=== PATIENT | female | born 1965 | race Caucasian/White ===

== ENCOUNTER 2017-09-06 13:28 | Observation (INO) | payer OTHER ==
[~2017-09-06 13:28] MED LIST: KETOROLAC 30 MG/1 ML SDV IVP ONE; fentaNYL 100 MCG/2 ML INJ IVP PRN
[2017-09-06] MEDS ORDERED: GLUCAGON HCL 1 MG VIAL ONE (13:30)
[2017-09-06] MEDS ORDERED: BUPIVACAINE 0.5% 30 ML SDV ONE (13:30)
[2017-09-06 14:18] VITALS: PULSE 108
[2017-09-06] MEDS ORDERED: LIDOCAINE 1% 2 ML INJ ID PRN (14:18)
[2017-09-06] MEDS ORDERED: LR 1,000 ML IV ONE (14:18)
[2017-09-06] MEDS ORDERED: METOCLOPRAMIDE 10 MG/2 ML VIAL IVP ONE (15:05)
[2017-09-06] MEDS ORDERED: KETOROLAC 30 MG/1 ML SDV ONE (15:08)
--- NOTE | 2017-09-06 15:16 | PDANEPAE ---
ANE History of Present Illness NV X 4 days ANE Past Medical History - Cardiovascular History Hx Hypertension: No Hx Arrhythmias: No Hx Chest Pain: No Hx Coronary Artery / Peripheral Vascular Disease: No Hx CHF / Valvular Disease: No Hx Palpitations: No - Pulmonary History Hx COPD: No Hx Asthma/Reactive Airway Disease: No Hx Recent Upper Respiratory Infection: No Hx Oxygen in Use at Home: No Hx Sleep Apnea: No Sleep Apnea Screening Result - Last Documented: Positive - Neurologic History Hx Cerebrovascular Accident: No Hx Seizures: No Hx Dementia: No - Endocrine History Hx Diabetes: No - Renal History Hx Renal Disorders: No - Liver History Hx Hepatic Disorders: No - Neurological & Psychiatric Hx Hx Neurological and Psychiatric Disorders: No - Cancer History Hx Cancer: No - Congenital Disorder History Hx Congenital Disorders: No - GI History Hx Gastrointestinal Disorders: Yes Gastrointestinal History Comment: gall bladder with diarrhea - Chronic Pain History Chronic Pain: No - Surgical History Prior Surgeries: 04/01 plantar fascitis surg, right RCR 2013, TVH 2005, hemorroids 2008, plantar fascitis 2006, ANE Review of Systems Review of systems is: negative Review of Systems: - Exercise capacity Exercise capacity: >=4 METS METS (RN): 4 METS ANE Patient History - Allergies Allergies/Adverse Reactions: APPLES Allergy (Uncoded 01/28/11 22:10) - Home Medications Home Medications: Lunesta 01/28/11 [Last Taken 09/03/17] Topamax 01/28/11 [Last Taken 09/06/17 06:30] Nortriptyline HCl 09/06/17 [Last Taken 09/05/17 21:00] Reglan 09/06/17 [Last Taken 09/05/17 23:30] - NPO status NPO Status: no food or drink >8 hours NPO Since - Liquids (Date): 09/05/17 NPO Since - Liquids (Time): 20:00 NPO Since - Solids (Date): 09/05/17 NPO Since - Solids (Time): 20:00 - Anes Hx Anes Hx: no prior problems - Smoking Hx Smoking Status: Never smoked - Alcohol Use Alcohol Use: Rarely - Family Anes Hx Family Anes Hx: none Family Hx Anesthesia Complications: adopted, unknown hx ANE Labs/Vital Signs - Vital Signs Blood Pressure: 143/94 Heart Rate: 108 Respiratory Rate: 20 O2 Sat (%): 95 Height: 157.48 cm Weight: 77.111 kg ANE Physical Exam - Airway Neck exam: FROM Mallampati Score: Class 2 Mouth exam: normal dental/mouth exam, small mouth opening - Pulmonary Pulmonary: no respiratory distress - Cardiovascular Cardiovascular: regular rate and rhythym - ASA Status ASA Status: II ANE Anesthesia Plan Anesthesia Plan: general endotracheal anesthesia
[2017-09-06] MEDS ORDERED: MIDAZOLAM 2 MG/2 ML VIAL IVP ONE (15:17)
[2017-09-06] MEDS ORDERED: IOPAMIDOL (ISOVUE-M 300) 15 ML VIAL ONE (15:20)
[2017-09-06] MEDS ORDERED: DEXAMETHASONE 4 MG/ML VIAL ONE (15:33)
[2017-09-06] MEDS ORDERED: fentaNYL 100 MCG/2 ML INJ ONE ×4 (15:33→17:20)
[2017-09-06] MEDS ORDERED: ROCURONIUM 50 MG/5 ML VIAL ONE (15:33)
[2017-09-06] MEDS ORDERED: LIDOCAINE 2% 5 ML SDV ONE (15:33)
[2017-09-06] MEDS ORDERED: ONDANSETRON 4 MG/2 ML VIAL ONE (15:33)
[2017-09-06] MEDS ORDERED: PROPOFOL 200 MG/20 ML VIAL ONE (15:34)
[2017-09-06] MEDS ORDERED: IOPAMIDOL (ISOVUE-300) 150 ML BTL ONE (16:29)
[2017-09-06] MEDS ORDERED: IOPAMIDOL (ISOVUE-M 200) 20 ML VIAL ONE (16:30)
[2017-09-06] MEDS ORDERED: SUGAMMADEX SODIUM 200 MG/2 ML VIAL IVP ONE (16:43)
--- NOTE | 2017-09-06 17:06 | POSTOPPROG ---
Post Op Note Date of Operation: 09/06/17 Surgeon: Charlie Solorzano Anesthesiologist: Sriram Anesthesia: GET(General Endotracheal) Pre-op Diagnosis: Acute Cholecystitis Procedure: Lap Choly with IOC Findings: dilated ducts, no filling defects Inf/Abcess present in the surg proc area at time of surgery?: Yes Depth: Organ Space EBL: Minimal Complications: no immediate Specimen(s): gallbladder
[2017-09-06] MEDS ORDERED: HYDROmorphONE/DILAUDID 1 MG/ML INJ IVP PRN ×2 (17:09)
[2017-09-06] MEDS ORDERED: ONDANSETRON 4 MG/2 ML VIAL IVP PRN ×2 (17:09)
[2017-09-06] MEDS ORDERED: PROMETHAZINE HCL 25 MG/ML INJ IVP PRN (17:09)
[2017-09-06] MEDS ORDERED: ALBUTEROL 3 ML DEYVIAL IH PRN (17:09)
[2017-09-06] MEDS ORDERED: HYDROCODONE/APAP 5/325 TAB PO PRN (17:09)
[2017-09-06] MEDS ORDERED: OXYCODONE/APAP 5/325 TAB PO PRN (17:09)
[2017-09-06] MEDS ORDERED: METOCLOPRAMIDE 10 MG/2 ML VIAL IVP PRN ×2 (17:09)
[2017-09-06] MEDS ORDERED: NALOXONE HCL 0.4 MG/ML INJ IVP PRN ×2 (17:09)
--- NOTE | 2017-09-06 17:09 | POSTANESTH ---
Post Anesthetic Evaluation Cardiovascular Status: Normal, Stable Respiratory Status: Normal, Stable Level of Consciousness/Mental Status: Can Participate in Eval Pain Control: Adequate, Prn Tx Ordered Nausea/Vomiting Control: Adequate, Prn Tx Ordered Complications Possibly Related to Anesthesia: None Noted
[2017-09-06] MEDS: fentaNYL 100 MCG/2 ML INJ IVP PRN ×2 (17:21→17:29)
[2017-09-06] MEDS ORDERED: LR 1,000 ML IV SCH (17:30)
[2017-09-06] MEDS ORDERED: HYDROCODONE/APAP 5/325 TAB ONE (17:32)
[2017-09-06 17:35] VITALS: O2SAT 93
[2017-09-06 17:55] VITALS: TEMP 97.9
[2017-09-06] MEDS ORDERED: KETOROLAC 30 MG/1 ML SDV IVP SCH (18:00)
--- NOTE | 2017-09-06 18:02 | GOP ---
[f rep st] OPERATIVE REPORT DATE OF OPERATION: 09/06/2017 SURGEON: Charlie Solorzano MD ANESTHESIA: General. ANESTHESIOLOGIST: Travis Bhatia MD PREOPERATIVE DIAGNOSIS: Acute cholecystitis. POSTOPERATIVE DIAGNOSIS: Acute cholecystitis. PROCEDURE PERFORMED: Laparoscopic cholecystectomy with intraoperative cholangiography. FINDINGS: Edematous gallbladder, dilated bile ducts without filling defect. INDICATIONS: 52-year-old female with acute cholecystitis. She is undergoing a laparoscopic cholecystectomy at this time. Risks and benefits of procedure, including bleeding, infection, open conversion, bile duct injury, retained stone , and potential for postoperative ERCP. All questions are answered. She desires to proceed. DESCRIPTION OF PROCEDURE: General anesthesia was induced. The abdomen was pre- injected with 0.5% Marcaine with epinephrine. A curvilinear infraumbilical incision was reopened. The midline fascia was opened vertically. A 10 mm trocar was placed under direct visualization. Three additional 5 mm upper abdominal ports were inserted. The gallbladder was retracted cephalad. This was an acutely thickened structure with adherent omentum and superficial hemorrhage. Both duct and artery were circumferentially encompassed confirming the critical view of safety. The duct was occluded and opened. There were multiple calculi noted within the cystic duct. These were all milked in retrograde fashion. There was egress of clear madden bile subsequently. Intraoperative cholangiography showed smooth ampullary tapering with rapid duodenal emptying. There were mildly dilated intra- and extrahepatic bile ducts. No obvious filling defects were identified. No obstructive masses or neoplasm was suggested distally. The clamp was removed. The duct was multiply clipped and divided with the ultrasonic dissector, as was the artery. The gallbladder was peeled from the liver bed fossa and brought out the umbilical port site intact using an EndoCatch pouch. Satisfactory hemostasis was assured. Trocars were removed under direct visualization. The infraumbilical midline fascia was closed with a running Vicryl suture. The wounds were closed with Monocryl suture and Dermabond. The patient was taken to Recovery uneventfully. /[id number]/MODL MTDD
[2017-09-06 18:15] VITALS: BP 133/91; RESP 18
== END 2017-09-06 19:14 | disposition home or self-care (01) ==
LOC: F3N 13:28
PROVIDERS: ADMIT Surgery; ATTEND Surgery
PROC: 0FT44ZZ Resection of Gallbladder, Percutaneous Endoscopic Approach (ICD-10-PCS; principal; 2017-09-06 15:00)
PROC: 0FC88ZZ Extirpation of Matter from Cystic Duct, Via Natural or Artificial Opening Endoscopic (ICD-10-PCS; principal; 2017-09-06 15:00)
PROC: BF10YZZ Fluoroscopy of Bile Ducts using Other Contrast (ICD-10-PCS; 2017-09-06 15:00)
DX: K81.0 Acute cholecystitis (principal)
CPT/HCPCS: J0171; J1100; J1610; J1885; J2250; J2405; J2704; J3010; Q9966; Q9967

== ENCOUNTER 2018-04-19 05:48 | Day surgery (SDC) | payer OTHER ==
[2018-04-19] MEDS ORDERED: LR 1,000 ML IV ONE (06:05)
[2018-04-19] MEDS ORDERED: LIDOCAINE 1% 2 ML INJ ID ONE (06:40)
[2018-04-19] MEDS ORDERED: BUPIVACAINE 0.25% 30 ML SDV ONE (06:51)
[2018-04-19] MEDS ORDERED: LIDOCAINE 2% 100 MG/5 ML SYR ONE (06:51)
[2018-04-19] MEDS ORDERED: DEXAMETHASONE 4 MG/ML VIAL ONE (06:52)
[2018-04-19] MEDS ORDERED: BACITRACIN 50,000 UNITS/10 ML SYR IRR ONE (06:52)
[2018-04-19] MEDS ORDERED: EPINEPHrine 1 MG/ML INJ ONE (06:52)
[2018-04-19] MEDS ORDERED: MIDAZOLAM 2 MG/2 ML VIAL IVP ONE (07:03)
--- NOTE | 2018-04-19 07:03 | PDANEPAE ---
ANE History of Present Illness left foot ramey's neuroma ANE Past Medical History - Cardiovascular History Hx Hypertension: No Hx Arrhythmias: No Hx Chest Pain: No Hx Coronary Artery / Peripheral Vascular Disease: No Hx CHF / Valvular Disease: No Hx Palpitations: No - Pulmonary History Hx COPD: No Hx Asthma/Reactive Airway Disease: No Hx Recent Upper Respiratory Infection: No Hx Oxygen in Use at Home: No Hx Sleep Apnea: Yes Sleep Apnea Screening Result - Last Documented: Negative Pulmonary History Comment: pt states no sleep apnea/no cpap - Neurologic History Hx Cerebrovascular Accident: No Hx Seizures: No Hx Dementia: No - Endocrine History Hx Diabetes: No Obesity: yes - Renal History Hx Renal Disorders: No - Liver History Hx Hepatic Disorders: No - Neurological & Psychiatric Hx Hx Neurological and Psychiatric Disorders: No - Cancer History Hx Cancer: No - Congenital Disorder History Hx Congenital Disorders: No - GI History Hx Gastrointestinal Disorders: Yes Gastrointestinal History Comment: gall bladder with diarrhea - Other Health History Other Health History: NEG - Chronic Pain History Chronic Pain: No - Surgical History Prior Surgeries: CHOLECYSTECTOMY. 04/01 plantar fascitis surg, right RCR 2014, TVH 2005, hemorroids 2008, plantar fascitis 2007, ANE Review of Systems Review of systems is: negative Review of Systems: - Exercise capacity METS (RN): 4 METS ANE Patient History - Allergies Allergies/Adverse Reactions: bee venom protein (honey bee) Allergy (Severe, Verified 09/06/17 15:27) Swelling/neck,face,throat APPLES Allergy (Severe, Uncoded 09/06/17 15:27) Swelling/neck,face,throat - Home Medications Home medications: home medication list seen and reviewed Home Medications: Lunesta 01/28/11 [Last Taken 1 Day Ago ~04/18/18] Topamax 01/28/11 [Last Taken 1 Day Ago ~04/18/18] Nortriptyline HCl 09/06/17 [Last Taken 1 Day Ago ~04/18/18] Multivitamin (*) 04/12/18 [Last Taken 1 Week Ago ~04/12/18] - NPO status NPO Since - Liquids (Date): 04/18/18 NPO Since - Liquids (Time): 21:00 NPO Since - Solids (Date): 04/19/18 NPO Since - Solids (Time): 06:00 - Anes Hx Anes Hx: no prior problems - Smoking Hx Smoking Status: Never smoked - Family Anes Hx Family Hx Anesthesia Complications: adopted, unknown hx ANE Labs/Vital Signs - Vital Signs Blood Pressure: 96/67 Heart Rate: 86 Respiratory Rate: 16 O2 Sat (%): 96 Height: 157.48 cm Weight: 81.647 kg ANE Physical Exam - Airway Neck exam: FROM Mallampati Score: Class 2 Mouth exam: small mouth opening - Pulmonary Pulmonary: no respiratory distress - Cardiovascular Cardiovascular: regular rate and rhythym - ASA Status ASA Status: II ANE Anesthesia Plan Anesthesia Plan: GA with mask
[2018-04-19] MEDS ORDERED: fentaNYL 100 MCG/2 ML INJ ONE ×2 (07:08→09:12)
[2018-04-19] MEDS ORDERED: LIDOCAINE 2% 5 ML SDV ONE (07:08)
[2018-04-19] MEDS ORDERED: PROPOFOL/EMULSION 500 MG/50 ML BOTTLE IV ONE (07:08)
[2018-04-19] MEDS ORDERED: ceFAZolin 2 GM/DEXTROSE 100 ML IV ONE (07:13)
--- NOTE | 2018-04-19 07:13 | PDHPUP ---
History & Physical Update H&P update statement: This history and physical update is based on an assessment of the patient which was completed after admission or registration (within 24 hours), but prior to the surgery/procedure. H&P update: H&P reviewed & patient examined H&P changes: none
[2018-04-19] MEDS ORDERED: MIDAZOLAM 2 MG/2 ML VIAL ONE (07:16)
[2018-04-19] MEDS ORDERED: CEFAZOLIN 2 GM/DEXTROSE/100 ML BAG IV ONE (07:16)
[2018-04-19] MEDS ORDERED: ONDANSETRON 4 MG/2 ML VIAL ONE (07:46)
--- NOTE | 2018-04-19 08:02 | POSTANESTH ---
Post Anesthetic Evaluation Cardiovascular Status: Normal, Stable Respiratory Status: Normal, Stable Level of Consciousness/Mental Status: Can Participate in Eval, Alert and Oriented Pain Control: Adequate, Prn Tx Ordered Nausea/Vomiting Control: Adequate, Prn Tx Ordered Complications Possibly Related to Anesthesia: None Noted
[2018-04-19] MEDS ORDERED: PROPOFOL 200 MG/20 ML VIAL ONE (08:17)
--- NOTE | 2018-04-19 09:04 | POSTOPPROG ---
Post Op Note Date of Operation: 04/19/18 Surgeon: Georges Lisa Vocational Teacher: none Anesthesiologist: liang Anesthesia: IV Sedation Pre-op Diagnosis: plantar plate tear and neuroma left 2nd Post-op Diagnosis: same Indication: plantar plate tear Procedure: neurectomy and plantar plate repair left 2nd Findings: torn plantar plate and neuroma Inf/Abcess present in the surg proc area at time of surgery?: No Depth: Deep Incisional (Fascial) EBL: Minimal Total fluids administered: 20cc 9/1 ratio .25% marcaine plain and with epi Complications: none Drains: Other (none)
[2018-04-19] MEDS ORDERED: fentaNYL 100 MCG/2 ML INJ IVP PRN (09:09)
[2018-04-19] MEDS ORDERED: HYDROmorphONE/DILAUDID 1 MG/ML INJ IVP PRN (09:09)
[2018-04-19] MEDS ORDERED: oxyCODONE IR 5 MG TAB PO PRN (09:09)
[2018-04-19] MEDS ORDERED: ONDANSETRON 4 MG/2 ML VIAL IVP PRN (09:09)
[2018-04-19] MEDS ORDERED: LR 500 ML IV PRN (09:09)
[2018-04-19] MEDS ORDERED: ALBUTEROL 3 ML DEYVIAL IH PRN (09:09)
[2018-04-19] MEDS ORDERED: ACETAMINOPHEN 500 MG TAB PO PRN (09:09)
[2018-04-19] MEDS ORDERED: NALOXONE HCL 0.4 MG/ML INJ IVP PRN (09:09)
[2018-04-19 10:36] VITALS: BP 134/81
--- NOTE | 2018-04-19 18:21 | GOP ---
[f rep st] OPERATIVE REPORT DATE OF OPERATION: 04/19/2018 SURGEON: Georges Lisa DPM TRAINING AND DEVELOPMENT COORDINATOR: None. ANESTHESIA: Local with MAC. ANESTHESIOLOGIST: Wayne Singh MD PREOPERATIVE DIAGNOSIS: 1. Plantar plate tear, left 2nd metatarsophalangeal joint. 2. Metatarsalgia, left 2nd metatarsal. 3. Neuroma, left 2nd intermetatarsal space. POSTOPERATIVE DIAGNOSIS: 1. Plantar plate tear, left 2nd metatarsophalangeal joint. 2. Metatarsalgia, left 2nd metatarsal. 3. Neuroma, left 2nd intermetatarsal space. PROCEDURE PERFORMED: 1. Second metatarsal osteotomy, left. 2. Plantar plate repair, left 2nd metatarsophalangeal joint. 3. Neuroma excision, left 2nd intermetatarsal space. FINDINGS: SPECIMENS: Soft tissue specimen sent for microscopic examination. ESTIMATED BLOOD LOSS: Minimal. DESCRIPTION OF PROCEDURE: Patient presented to [facility] and was cleared for the inte nded procedure. Patient was taken to the operating room and placed on the table in supine position. IV sedation was started per the anesthesia department. Foot was anesthetized in an infiltrative ner ve block fashion. Foot was prepped, scrubbed and draped in usual sterile fashion. Following exsangu ination by elevation and Esmarch bandage, pneumatic ankle tourniquet was inflated to 225 mmHg. At th is time, attention was directed to the dorsal aspect of the left 2nd metatarsophalangeal joint where a lazy-S incision was made starting over the 2nd intermetatarsal space curving medially and then endi ng distally at the level of the proximal interphalangeal joint. The incision was carried deep utiliz ing sharp blunt dissection, making sure that all neurovascular structures were identified and retract ed at this time. All superficial bleeders were cauterized. The incision was carried down deep to th e level of the joint capsule. At this time, attention was redirected into the 1st intermetatarsal sp marshal where again utilizing sharp blunt dissection was carried down to the deep transverse ligament. T his was sharply incised to allow for adequate visualization to the intermetatarsal nerve. At this ti me, there was noted to be some enlargement of the nerve. It was decided that though not a large spec imen still could potentially be part of her underlying pathology, it was decided would be removed. T he nerve was dissected free distally into the 2 terminal branches and proximally back past the metata rsal head. Before all 3 areas were resected and then removed, specimen was sent in for pathological evaluation. The area was then flushed with copious amounts of sterile saline. Upon completion of th is, attention was redirected to the dorsal aspect of the left 2nd metatarsophalangeal joint. A linea r capsulotomy was performed. Capsular tissues were dissected free medially and laterally to allow fo r adequate exposure to the metatarsophalangeal joint. No obvious degenerative arthritic changes were appreciable though there was obvious tearing of the plantar plate. It was decided that the repair w ould be necessary. At this time, an osteotomy of the metatarsal was performed running from dorsal di stal to plantar proximal. The metatarsal head was pushed proximally and held temporarily with K-wire fixation. Another K-wire was placed into the base of the proximal phalanx before the pin distractor was placed over the site. The area was distracted to allow for better visualization of the plantar plate. Upon completion of this, the base of the proximal phalanx was roughed up with a bone rasp reese n to healthy bleeding bone. The mini scorpion was then utilized to tag the medial and lateral aspect of the plantar plate, 2 drill holes in an X fashion were placed through the base of the proximal pha lanx. The suture was then passed to the dorsal aspect. Upon completion of this, the area was again flushed with copious amounts of sterile saline. K-wire fixation was all removed. C-arm fluoroscopy was utilized to ensure adequate placement of the 2nd metatarsal head resulting in some shortening fro m preoperative evaluation. This was again held temporarily with a K-wire fixation before being fixat ed with the Arthrex 2.0 snap-off screws and then 11 and 13 mm screw were introduced. Temporary K-wir e was removed and good compression at the osteotomy was noted. Overlying cortical shelf of bone on t he dorsal aspect was then removed with a mini rongeur. The areas again flushed with copious amounts of sterile saline. The toe was held in a rectus alignment before having the plantar plate sutured do wn on the dorsal aspect of the proximal phalanx. The area was flushed a final time with copious amou nts of sterile saline before the deep tissues were closed with 3-0 Vicryl followed by subcutaneous cl osure with 5-0 Vicryl and skin closure with 5-0 nylon. The area was dressed with Betadine-soaked Ada ptics, 4x4s, Falguni, and Coban. The patient was taken to recovery room with vital signs stable, vascu lar supply intact to digits 1 through 5 bilaterally after the pneumatic ankle tourniquet had been rel eased for a total tourniquet time of 64 minutes. HEMOSTASIS: PAT at 225 mmHg by 64 minutes. MATERIALS: Arthrex 2.0 snap-off screws by 11 and 13 mm. INJECTABLES: 20 cc 9:1 ratio 0.25% Marcaine plain, 0.25% Marcaine with epi preoperatively. COMPLICATIONS: None. /[id number]/MODL
== END 2018-04-19 10:42 | disposition home or self-care (01) ==
LOC: FSGY 05:48
PROVIDERS: ATTEND Podiatrist Primary Podiatric Medicine
PROC: 0JBR3ZX Excision of Left Foot Subcutaneous Tissue and Fascia, Percutaneous Approach, Diagnostic (ICD-10-PCS; principal; 2018-04-19 07:15)
PROC: 0QQ Lower Bones, Repair (ICD-10-PCS; principal; 2018-04-19 07:15)
DX: S93.145D Subluxation of metatarsophalangeal joint of left lesser toe(s), subsequent encounter (principal); G57.62 Lesion of plantar nerve, left lower limb
CPT/HCPCS: C1713; J0171; J0690; J1100; J2001; J2250; J2405; J2704; J3010

== ENCOUNTER 2018-09-27 07:50 | Day surgery (SDC) | payer OTHER ==
[2018-09-27] MEDS ORDERED: ceFAZolin 2 GM/DEXTROSE 100 ML IV ONE (07:58)
[2018-09-27] MEDS ORDERED: LIDOCAINE 1% 2 ML INJ ID PRN (07:59)
[2018-09-27] MEDS ORDERED: LR 1,000 ML IV ONE (07:59)
[2018-09-27] MEDS ORDERED: BACITRACIN 50,000 UNITS/10 ML SYR IRR ONE (08:49)
[2018-09-27] MEDS ORDERED: BUPIVACAINE/EPI 0.25% 30 ML SDV ONE ×2 (08:49→09:47)
[2018-09-27] MEDS ORDERED: BUPIVACAINE 0.25% 10 ML SDV ONE (08:49)
--- NOTE | 2018-09-27 09:30 | PDHPUP ---
History & Physical Update H&P update statement: This history and physical update is based on an assessment of the patient which was completed after admission or registration (within 24 hours), but prior to the surgery/procedure. H&P update: no change in patient's condition since H&P completed
[2018-09-27] MEDS ORDERED: DEXAMETHASONE 4 MG/ML VIAL IVP PRN ×2 (09:44→11:04)
[2018-09-27] MEDS ORDERED: oxyCODONE IR 5 MG TAB PO PRN ×2 (09:44→11:04)
[2018-09-27] MEDS ORDERED: NS 500 ML IV PRN ×2 (09:44→11:04)
[2018-09-27] MEDS ORDERED: LR 500 ML IV PRN ×2 (09:44→11:04)
[2018-09-27] MEDS ORDERED: NALOXONE HCL 0.4 MG/ML INJ IVP PRN ×2 (09:44→11:04)
[2018-09-27] MEDS ORDERED: MIDAZOLAM 2 MG/2 ML VIAL IVP ONE (09:44)
[2018-09-27] MEDS ORDERED: HYDROCODONE/APAP 5/325 TAB PO PRN ×2 (09:44→11:04)
[2018-09-27] MEDS ORDERED: ALBUTEROL 3 ML DEYVIAL IH PRN ×2 (09:44→11:04)
[2018-09-27] MEDS ORDERED: HYDROmorphONE/DILAUDID 2 MG/ML INJ IVP PRN ×2 (09:44→11:04)
[2018-09-27] MEDS ORDERED: ONDANSETRON 4 MG/2 ML VIAL IVP PRN ×2 (09:44→11:04)
[2018-09-27] MEDS ORDERED: fentaNYL 100 MCG/2 ML INJ IVP PRN ×2 (09:44→11:04)
--- NOTE | 2018-09-27 09:44 | PDANEPAE ---
ANE History of Present Illness here for Left Hardware removal ANE Past Medical History - Cardiovascular History Hx Hypertension: No Hx Arrhythmias: No Hx Chest Pain: No Hx Coronary Artery / Peripheral Vascular Disease: No Hx CHF / Valvular Disease: No Hx Palpitations: No - Pulmonary History Hx COPD: No Hx Asthma/Reactive Airway Disease: No Hx Recent Upper Respiratory Infection: No Hx Oxygen in Use at Home: No Hx Sleep Apnea: No Sleep Apnea Screening Result - Last Documented: Negative Pulmonary History Comment: pt states no sleep apnea/no cpap - Neurologic History Hx Cerebrovascular Accident: No Hx Seizures: No Hx Dementia: No - Endocrine History Hx Diabetes: No - Renal History Hx Renal Disorders: No - Liver History Hx Hepatic Disorders: No - Neurological & Psychiatric Hx Hx Neurological and Psychiatric Disorders: No - Cancer History Hx Cancer: No - Congenital Disorder History Hx Congenital Disorders: No - GI History Hx Gastrointestinal Disorders: Yes Gastrointestinal History Comment: gall bladder with diarrhea - Other Health History Other Health History: hysterectomy 2005 - Chronic Pain History Chronic Pain: No - Surgical History Prior Surgeries: CHOLECYSTECTOMY. 04/01 plantar fascitis surg, right RCR 2013, TVH 2005, hemorroids 2008, plantar fascitis 2006,. 2017 gallbladder removed. 2017 plantar tendon repair ANE Review of Systems Review of systems is: negative Review of Systems: - Exercise capacity Exercise capacity: >=4 METS METS (RN): 4 METS ANE Patient History - Allergies Allergies/Adverse Reactions: bee venom protein (honey bee) Allergy (Severe, Verified 09/25/18 14:26) Anaphylaxis APPLES Allergy (Severe, Uncoded 09/25/18 14:26) Anaphylaxis - Home Medications Home medications: home medication list seen and reviewed Home Medications: Lunesta 01/28/11 [Last Taken 09/26/18 21:45] Topamax 01/28/11 [Last Taken 09/26/18 21:45] Nortriptyline HCl 09/06/17 [Last Taken 09/26/18 21:45] Multivitamin (*) 04/12/18 [Last Taken 2 Days Ago ~09/25/18] Epipen 0.3 MG 09/25/18 [Last Taken Unknown] - NPO status NPO Since - Liquids (Date): 09/26/18 NPO Since - Liquids (Time): 22:00 NPO Since - Solids (Date): 09/26/18 NPO Since - Solids (Time): 19:30 - Smoking Hx Smoking Status: Former smoker - Family Anes Hx Family Hx Anesthesia Complications: unknown, pt adopted ANE Labs/Vital Signs - Vital Signs Vital Signs: reviewed preoperatively; see RN documention for details Blood Pressure: 111/78 Heart Rate: 90 Respiratory Rate: 18 O2 Sat (%): 96 Height: 157.48 cm Weight: 79.379 kg ANE Physical Exam - Airway Neck exam: FROM Mallampati Score: Class 1 - Pulmonary Pulmonary: no respiratory distress - Cardiovascular Cardiovascular: regular rate and rhythym - ASA Status ASA Status: II ANE Anesthesia Plan Anesthesia Plan: GA with mask
[2018-09-27] MEDS ORDERED: PROPOFOL/EMULSION 500 MG/50 ML BOTTLE IV ONE ×2 (09:47→10:21)
[2018-09-27] MEDS ORDERED: fentaNYL 100 MCG/2 ML INJ ONE ×2 (09:48→09:50)
[2018-09-27] MEDS ORDERED: LIDOCAINE 2% 5 ML SDV ONE (10:15)
[2018-09-27] MEDS ORDERED: PHENYLEPHRINE HCL 100 MCG/ML SYR ONE (10:25)
--- NOTE | 2018-09-27 11:15 | POSTOPPROG ---
Post Op Note Date of Operation: 09/27/18 Surgeon: Georges Lisa Volunteer Firefighter: none Anesthesiologist: frances Anesthesia: IV Sedation Pre-op Diagnosis: painful hardware and scar left 2nd mtpj Post-op Diagnosis: same Indication: pain Procedure: scar revision, hardware removal left Findings: none Inf/Abcess present in the surg proc area at time of surgery?: No Depth: Deep Incisional (Fascial) EBL: Minimal Total fluids administered: 20cc 9/1 .25% marcaine plain and with epi 5cc 2% xylocaine plain Complications: none Drains: Other (none)
[2018-09-27 12:47] VITALS: BP 110/79
--- NOTE | 2018-09-29 01:35 | GOP ---
DATE OF OPERATION: 09/27/2018 SURGEON: Georges Lisa DPM ASSISTANT BRANCH MANAGER: None. ANESTHESIA: Local with MAC. ANESTHESIOLOGIST: Dr. Thompson. PREOPERATIVE DIAGNOSIS: 1. Painful scar, left 2nd metatarsophalangeal joint. 2. Painful retained hardware, left 2nd metatarsal. 3. Contraction left 2nd metatarsophalangeal joint. POSTOPERATIVE DIAGNOSIS: 1. Painful scar, left 2nd metatarsophalangeal joint. 2. Painful retained hardware, left 2nd metatarsal. 3. Contraction left 2nd metatarsophalangeal joint. 4. 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 PROCEDURE PERFORMED: 1. Arthrotomy left 2nd metatarsophalangeal joint. 2. Excision metatarsal coalition/exostectomy left 2nd and 3rd metatarsals. 3. Scar revision, left foot. 4. Removal of painful retained hardware left 2nd metatarsal. 5. Amniotic graft application, left foot. FINDINGS: SPECIMENS: Bone and soft tissue specimens sent for pathological evaluation. ESTIMATED BLOOD LOSS: Minimal. DESCRIPTION OF PROCEDURE: The patient presented to [facility], was cleared for the int ended procedure. Patient taken to the operating room and placed on the table in supine position. IV sedation was started per the anesthesia department. Foot was anesthetized and infiltrative in nerve block fashion. Foot was prepped, scrubbed, and draped in usual sterile fashion. Following exsangui nation by elevation, Esmarch bandage, pneumatic ankle tourniquet was inflated to 225 mmHg. At this t nimisha, attention was directed to the dorsal aspect of left foot where the obvious scar was identified. The scar was then incised on both sides with the interposing scar tissue dissected free and removed. There was noted to be considerable subcutaneous scarring at this time, which was freed up utilizing blunt dissection with tenotomy scissors. Upon completion of this, attention was redirected down to the dorsal aspect of the 2nd metatarsophalangeal joint. At this time, a linear capsulotomy was perfo rmed. Capsular tissues were dissected free medially and laterally to allow for adequate exposure to the retained hardware. The retained hardware was removed without incident. Upon completion of the r emoval of the retained hardware, further inspection of the arthrotomy and metatarsophalangeal joint w as performed. At this time, the cartilaginous surface on both sides of the joint was noted to have g ood healthy cartilage without evidence of substantial degenerative arthritis. A picture of this was taken at this time. Upon completion of this though, there was still considerable limitation of range of motion, especially with plantar flexion of the metatarsophalangeal joint. It was decided that fu rther reduction of scar tissue was necessary, and at this time a McGlamry elevator was introduced and scarring was released from the plantar surface of the metatarsophalangeal joint. This started to al low for better range of motion of the metatarsophalangeal joint but still there was noted to be no mo tion between the 2nd and 3rd metatarsals. C-arm fluoroscopy at this time showed good joint spacing, but there was a radiopaque band running between the 2nd and 3rd metatarsals. Further dissection in b etween these 2 metatarsals showed a bridge of fibrous and bony material running between the two. It was decided that this need to be removed. Utilizing a rongeur and sharp and blunt dissection, the co alition between the 2 metatarsals was excised. This was sent in for pathological evaluation. Upon c ompletion of this, there was then independent range of motion between the 2nd and 3rd metatarsals. T he area was flushed with copious amounts of sterile saline at this time. It was decided to try to re duce potential of scarring to the area again, that an amniotic graft would be placed into this area. The Vivex 4 x 4 cm graft was chosen. It was cut in half and the 1st half was placed in between the 2nd and 3rd metatarsals. The capsule was then closed with 3-0 Vicryl. To try to prevent further sca rring and prevent lack of range of motion, the rest of the implant was placed appropriately over the capsule in the subcutaneous tissue at this time. Before this was performed, the area had been again flushed with copious amounts of sterile saline. The subcutaneous closure was then obtained with 5-0 Vicryl followed by skin closure with 5-0 nylon. C-arm fluoroscopy showed good plantar flexion motion of the 2nd metatarsophalangeal joint at this time. The area was dressed with Betadine-soaked Adapti cs, 4x4s, Falguni, and Coban. The patient was taken to the recovery room with vital signs stable, vasc ular supply intact digits 1 through 5 bilaterally. HEMOSTASIS: PAT at 225 mmHg x 56 minutes. MATERIALS: Vivex 4x4 cm graft. INJECTABLES: 20 cc 9:1 ratio 0.25% Marcaine plain 0.25% Marcaine with epi preoperatively, 5 cc 2% Xy locaine plain intraoperatively. COMPLICATIONS: None. /[id number]/MODL
== END 2018-09-27 12:47 | disposition home or self-care (01) ==
LOC: FSGY 07:50
PROVIDERS: ATTEND Podiatrist Primary Podiatric Medicine
DX: T84.84XA Pain due to internal orthopedic prosthetic devices, implants and grafts, initial encounter (principal); L90.5 Scar conditions and fibrosis of skin; Q66.89 Other specified congenital deformities of feet; M24.575 Contracture, left foot; M79.672 Pain in left foot; Z87.891 Personal history of nicotine dependence
CPT/HCPCS: C9399; J0690; J2370; J2704; J3010